=== PATIENT | female | born 1960 | race Caucasian/White ===

== ENCOUNTER 2017-07-10 07:31 | Inpatient (IN) | payer SELFPAY ==
[~2017-07-10] VITALS: Ht 167.6 cm; Wt 47.6 kg
--- NOTE | ~2017-07-10 | ST ---
[place], [place] EXERCISE STRESS TEST REPORT NAME: ELEANOR SULTANA UNIT #: [id number] ROOM: 505 DOCTOR: JUAN GRIER MD BIRTHDATE: [birth year] DOS: 07/10/2017 TREADMILL STRESS TEST REPORT. REFERRING PHYSICIAN: Dr. Leslie. INDICATION: Central chest pain. The patient underwent standard Moy protocol exercise treadmill stress testing on 07/10/2017. The patient's baseline EKG showed normal sinus rhythm, nonspecific ST-T wave changes with a heart rate of 74, blood pressure of 118/50. Peak heart rate was 148 which represents 90% of predicted. The patient experienced no chest pain, EKG changes or arrhythmias. The patient exercised for 6 minutes and 30 seconds. SUMMARY OF FINDINGS: 1. Unremarkable exercise treadmill stress test. 2. [place] Treadmill score of 6.5 portending an low risk prognosis. 3. Please see separate report for perfusion scan results. JUAN GRIER MD CM:STRESS:EXERCISE STRESS TEST REPORT [id number] JUAN GRIER MD
[~2017-07-10 07:31] MED LIST: ANTIBIOTIC O500 U/GM TP; BACTRIM DS 8001 TA1 PO; CEPHALEXIN500 M1 PO; KEFLEX500 MG PO
[2017-07-10 07:35] VITALS: BP 153/66
[2017-07-10 08:03] LABS: BASO % 0.5 % (0.0-1.0); EOS % 0.3 % (1.0-4.0); HEMATOCRIT 35.5 % (37.0-47.0); HEMOGLOBIN 11.9 g/dl (12.0-16.0); LYMPH % 13.1 % (27.0-41.0); MEAN CELL VOLUME 90.3 fl (81.0-99.0); MEAN CORPUSCULAR HGB 30.3 pg (27.0-31.0); MEAN CORPUSCULAR HGB CONC 33.5 g/dl (33.0-37.0); MEAN PLATELET VOLUME 9.3 fl (9.6-12.3); MONO # 0.5 10*3/uL (0.1-1.0); MONO % 6.9 % (3.0-9.0); NEUT # 5.8 10*3/uL (2.3-7.9); NEUT % 79.1 % (47.0-73.0); PLATELET COUNT AUTOMATED 180 10*3/uL (130-400); RED BLOOD COUNT 3.93 10*6/uL (4.10-5.10); RED CELL DISTRI WIDTH 11.7 % (0-14.5); WHITE BLOOD COUNT 7.3 10*3/uL (4.8-10.8)
[2017-07-10 08:19] LABS: BUN 10 mg/dl (7-24); CHLORIDE 100 mmol/L (98-107); CREATININE 0.76 mg/dL (0.55-1.02); POTASSIUM 3.6 mmol/L (3.5-5.1); SODIUM 135 mmol/L (136-145)
[2017-07-10 08:27] LABS: TROPONIN I < 0.015 ng/ml (<0.045)
[2017-07-10 08:32] VITALS: BP 158/57
[2017-07-10 09:35] VITALS: BP 153/67
[2017-07-10 09:45] VITALS: BP 145/56
[2017-07-10 16:00] VITALS: BP 125/55
[2017-07-10 20:00] VITALS: BP 144/69
[2017-07-11] VITALS: BP 118/54
[2017-07-11 07:04] LABS: BASO % 0.5 % (0.0-1.0); EOS # 0.1 10*3/uL (0.0-0.4); EOS % 0.8 % (1.0-4.0); HEMATOCRIT 34.7 % (37.0-47.0); HEMOGLOBIN 11.7 g/dl (12.0-16.0); LYMPH # 2.1 10*3/uL (1.3-4.4); LYMPH % 34.2 % (27.0-41.0); MEAN CELL VOLUME 91.1 fl (81.0-99.0); MEAN CORPUSCULAR HGB 30.7 pg (27.0-31.0); MEAN CORPUSCULAR HGB CONC 33.7 g/dl (33.0-37.0); MEAN PLATELET VOLUME 9.8 fl (9.6-12.3); MONO # 0.8 10*3/uL (0.1-1.0); MONO % 12.7 % (3.0-9.0); NEUT # 3.1 10*3/uL (2.3-7.9); NEUT % 51.6 % (47.0-73.0); PLATELET COUNT AUTOMATED 186 10*3/uL (130-400); RED BLOOD COUNT 3.81 10*6/uL (4.10-5.10); RED CELL DISTRI WIDTH 11.8 % (0-14.5)
[2017-07-11 07:35] LABS: ALBUMIN 3.7 gm/dl (3.1-4.5); BUN 9 mg/dl (7-24); CHLORIDE 101 mmol/L (98-107); CHOLESTEROL 155 mg/dL (<200); CREATININE 0.68 mg/dL (0.55-1.02); PHOSPHOROUS 3.3 mg/dL (2.5-4.9); POTASSIUM 3.7 mmol/L (3.5-5.1); SGOT/AST 17 IU/L (3-35); SGPT/ALT 19 U/L (12-78); SODIUM 137 mmol/L (136-145); TOTAL PROTEIN 7.1 gm/dL (6.4-8.2); TRIGLYCERIDES 87 mg/dl (<150); VLDL CHOLESTEROL 17 mg/dL (6-40)
[2017-07-11 07:41] LABS: ALKALINE PHOSPHATASE 116 U/L (45-117); HDL CHOLESTEROL 67 mg/dl (40-60); LDL CHOLESTEROL 71 mg/dL (9-159); THYROID STIM HORMONE (HS) 0.277 uIU/ml (0.358-4.75)
[2017-07-11 08:00] VITALS: BP 117/57
[2017-07-11 09:02] LABS: VITAMIN D, 25-HYDROXY 16.2 ng/mL (30-100)
[2017-07-11 16:00] VITALS: BP 118/71
[2017-07-11 17:35] LABS: BILIRUBIN NEGATIVE (NEGATIVE); BLOOD TRACE-LYSED (NEGATIVE); CLARITY CLEAR (CLEAR); COLOR YELLOW (YELLOW); GLUCOSE NEGATIVE (NEGATIVE); KETONE NEGATIVE (NEGATIVE); LEUKO ESTERASE NEGATIVE (NEGATIVE); NITRITE NEGATIVE (NEGATIVE); SPECIFIC GRAVITY <= 1.005 (1.005-1.030); UROBILINOGEN 0.2 E.U./dl (0.2-1.0)
[2017-07-11 17:44] LABS: BACTERIA 1+
[2017-07-11 20:00] VITALS: BP 120/58
[2017-07-12] VITALS: BP 104/62; BP 95/68
[2017-07-12 08:00] VITALS: BP 122/60
[2017-07-12] MEDS ORDERED: VITAMIN D-32000 UNIT PO (11:31)
[2017-07-12] MEDS ORDERED: B12,B-12,B 12500 MC1 PO (11:31)
[2017-07-12] MEDS ORDERED: CITALOPRAM HYDR20 MG PO (11:31)
== END 2017-07-12 12:26 | disposition home or self-care (01) | DRG 92 ==
LOC: ED 07:31 → 5E 09:26 → EDHOLD 09:26 → 5E 09:31
PROVIDERS: Emergency Medicine; Hospitalist; Student in an Organized Health Care Education/Training Program
DX: R20.0 Anesthesia of skin (principal); E87.1 Hypo-osmolality and hyponatremia; R94.31 Abnormal electrocardiogram [ECG] [EKG]; R07.89 Other chest pain; R51 Headache; D64.9 Anemia, unspecified; D72.9 Disorder of white blood cells, unspecified; D72.810 Lymphocytopenia; R73.9 Hyperglycemia, unspecified; F32.9 Major depressive disorder, single episode, unspecified; F41.9 Anxiety disorder, unspecified; R63.6 Underweight; Z82.49 Family history of ischemic heart disease and other diseases of the circulatory system; Z80.9 Family history of malignant neoplasm, unspecified; Z83.3 Family history of diabetes mellitus

== ENCOUNTER → 2021-06-07 | Outpatient (CLI) | payer OTHER ==
[~2021-06-07] MED LIST changes: +B12,B-12,B 12500 MC1 PO; +CITALOPRAM HYDR20 MG PO; +VITAMIN D-32000 UNIT PO
== END | disposition home or self-care (01) ==
LOC: COVID19 16:09
PROVIDERS: ATTEND Internal Medicine
DX: U07.1 COVID-19 (principal)

== ENCOUNTER 2022-04-13 16:46 | Emergency (ER) | payer OTHER ==
[~2022-04-13] VITALS: Wt 49.9 kg
[2022-04-13] MEDS ORDERED: HYDROCODONE-AC1 EAC1 PO (19:23)
== END 2022-04-13 19:35 | disposition home or self-care (01) ==
LOC: ED 16:46
DX: S52.292A Other fracture of shaft of left ulna, initial encounter for closed fracture (principal); V69.49XA Driver of heavy transport vehicle injured in collision with other motor vehicles in traffic accident, initial encounter; Y93.89 Activity, other specified; Y92.89 Other specified places as the place of occurrence of the external cause; Y99.8 Other external cause status

== ENCOUNTER → 2022-04-19 | Outpatient (CLI) | payer SELFPAY ==
[~2022-04-19] MED LIST changes: +HYDROCODONE-AC1 EAC1 PO
== END | disposition home or self-care (01) ==
LOC: RAD 13:15
PROVIDERS: ATTEND Orthopaedic Surgery
DX: S52.202A Unspecified fracture of shaft of left ulna, initial encounter for closed fracture (principal); X58.XXXA Exposure to other specified factors, initial encounter; Y93.89 Activity, other specified; Y92.89 Other specified places as the place of occurrence of the external cause; Y99.8 Other external cause status

== ENCOUNTER → 2022-04-27 | Outpatient (CLI) | payer SELFPAY | END | disposition home or self-care (01) | LOC: ORTHO 02:13 | PROVIDERS: ATTEND Orthopaedic Surgery | DX: S52.235D Nondisplaced oblique fracture of shaft of left ulna, subsequent encounter for closed fracture with routine healing (principal); X58.XXXD Exposure to other specified factors, subsequent encounter ==

== ENCOUNTER → 2022-05-04 | Outpatient (CLI) | payer SELFPAY | END | disposition home or self-care (01) | LOC: ORTHO 04:26 | PROVIDERS: ATTEND Orthopaedic Surgery | DX: S52.235D Nondisplaced oblique fracture of shaft of left ulna, subsequent encounter for closed fracture with routine healing (principal); X58.XXXD Exposure to other specified factors, subsequent encounter ==

== ENCOUNTER → 2022-05-25 | Outpatient (CLI) | payer SELFPAY | END | disposition home or self-care (01) | LOC: ORTHO 00:54 | PROVIDERS: ATTEND Orthopaedic Surgery | DX: S52.235D Nondisplaced oblique fracture of shaft of left ulna, subsequent encounter for closed fracture with routine healing (principal); X58.XXXD Exposure to other specified factors, subsequent encounter ==

== ENCOUNTER → 2022-06-08 | Outpatient (CLI) | payer SELFPAY | END | disposition home or self-care (01) | LOC: ORTHO 00:09 | PROVIDERS: ATTEND Orthopaedic Surgery | DX: S52.235D Nondisplaced oblique fracture of shaft of left ulna, subsequent encounter for closed fracture with routine healing (principal); X58.XXXD Exposure to other specified factors, subsequent encounter ==